=== PATIENT | female | born 2005 | race Caucasian/White ===

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

== ENCOUNTER 2024-06-24 09:42 | Emergency (ER) | payer BC, SELFPAY ==
[2024-06-24 09:47] VITALS: BP 128/81; PULSE 93; RESP 18; TEMP 36.5; O2SAT 99
[2024-06-24] MEDS: dexAMETHasone 10 MG/10 ML INTENSOL CONC (*BKC) PO (10:24)
--- NOTE | 2024-06-24 10:30 | ED_ITS ---
HPI - URI/Sore Throat General Chief Complaint: Upper Respiratory Infection Stated Complaint: Sore Throat Time Seen by Provider: 06/24/24 10:05 Source: patient and RN notes reviewed Mode of arrival: ambulatory Limitations: no limitations History of Present Illness HPI Narrative: [age] year old female presents Express Care complaining of sore throat for 2 days. Patient reports that her tonsils are swollen and that it is painful to swallow food. Patient also reports having body aches and chills. Patient denies any fevers, or any other upper respiratory symptoms. Patient says she had mono last year. Patient denies any difficulty swallowing, excessive drooling, or any difficulty breathing. Patient denies any significant past medical history. Related Data Home Medications ?Medication ?Instructions ?Recorded ?Confirmed ?Last Taken ?Type levonorgestrel 14 mcg/24 hr (up to 1 device intrauterine ONCE 08/19/21 06/24/24 Unknown History 3 yrs) 13.5 mg intrauterine device (Renetta) Allergies Allergy/AdvReac Type Severity Reaction Status Date / Time red dye Allergy Intermediate Hives Verified 06/24/24 09:48 Review of Systems Review of Systems: CONSTITUTIONAL: Denies fever, or sweats. Positive for body aches and chills. EYES: Denies visual changes, redness, or discharge. ENT: Denies rhinorrhea, congestion, or otalgia. Positive for sore throat. CARDIOVASCULAR: Denies chest pain, palpitations, or edema. RESPIRATORY: Denies cough or dyspnea. GASTROINTESTINAL: Denies abdominal pain, nausea, vomiting, or diarrhea. GENITOURINARY: Denies dysuria or hematuria. SKIN: Denies rash or itching. MUSCULOSKELETAL: Denies back pain, joint pain, or myalgia. NEUROLOGIC: Denies headache, numbness, or weakness. PSYCHIATRIC: Denies anxiety or depression. All other systems reviewed are negative, except as documented in HPI. [facility] Past Medical History Medical History Encounter for IUD insertion Back Pain Abnormal menstrual cycle Nocturnal enuresis Depression Anxiety disorder Surgical History Surgical History No significant past surgical history Family History Family History Grandparent Diabetes mellitus Hypertension Breast cancer Social History Social History Smoking status: Never smoker Tobacco type: e-cigarettes/vaping Alcohol intake: current Drinks per week: 1 Alcohol use details: occasionally Substance use: current Substance use type: marijuana Other substance usage details: smokes Last use: last night Do You Feel Safe in your Home?: Yes Lack of Transportation: No Lack of Food: Never True Current Housing: I Have Housing Concerned About Future Housing: No Difficulty Paying Gas/Electric Bills: No Difficulty Paying for Meds: No Currently Unemployed: No Education: High School Diploma/GED Difficulty w/ Childcare or Family Care: No Living arrangements: with family Comments At the time of my signature, I reviewed and agree with the nursing past medical, surgical, social, and family history. There is no relevant family history pertinent to the patient complaint. Exam Narrative: GENERAL: This is a well-nourished, well-developed adult, in no apparent distress. They are non ill-appearing, nontoxic appearing. HEAD: normocephalic, atraumatic. EYES: Sclera clear/white. Conjunctiva normal. Vision is grossly intact. Extraocular movements intact EARS: External ears normal, auditory canals clear and without drainage, TMs normal without perforation. Hearing grossly intact. NOSE: External nose normal with no obvious nasal discharge, nasal turbinates without redness, no rhinorrhea. THROAT: Mucous membranes moist, posterior pharynx erythematous without exudate. Tonsils are erythematous with exudate present. Uvula midline. No trismus. NECK: Neck supple, mild tenderness with cervical lymphadenopathy, masses or thyromegaly. CARDIOVASCULAR: Regular rate and rhythm without murmurs, gallops, or rubs. RESPIRATORY: Clear to auscultation. Breath sounds equal bilaterally. No wheezes, rales, or rhonchi. SKIN: warm, Dry, intact with no suspicious lesions or rash, good texture and turgor. NEURO: awake, alert, and oriented to person, place and time. There were no obvious focal neurologic abnormalities. EXTREMITIES: No joint tenderness, effusion, or edema noted. BACK: Nontender without deformity. Course Course Emergency Course: Portions of this record may have been created with voice recognition software Level of Care: Express Care Visit Vital Signs Vital signs: Vital Signs Temperature 97.7 F 06/24/24 09:47 Pulse Rate 93 06/24/24 09:47 Respiratory Rate 18 06/24/24 09:47 Blood Pressure 128/81 06/24/24 09:47 Pulse Oximetry 99 06/24/24 09:47 Oxygen Delivery Room Air 06/24/24 09:47 Temperature 97.7 F 06/24/24 09:47 Pulse Rate 93 06/24/24 09:47 Respiratory Rate 18 06/24/24 09:47 Blood Pressure 128/81 06/24/24 09:47 Pulse Oximetry 99 06/24/24 09:47 Oxygen Delivery Room Air 06/24/24 09:47 Reviewed MDM - URI/Sore Throat MDM Narrative Medical decision making narrative: Rapid strep negative. Throat culture pending. Likely symptoms are viral in etiology. Offered viral testing and mono swab and patient declined. Given her tonsils swelling and pain will give her 1 time dose of dexamethasone. Discussed physical exam findings. Advised supportive measures and signs/symptoms to go to the ER. Pt is appropriate for outpt treatment and f/u. Differential Diagnosis Differential diagnosis: Likely upper respiratory infection, viral infection, pharyngitis and other (Tonsillitis) Lab Data Attestation: I reviewed the patient's lab results. Critical Care Time Critical Care Time Critical Care Time: No Discharge Plan Discharge Clinical Impression: Acute tonsillitis Qualifiers: Pharyngitis/tonsillitis etiology: unspecified etiology Qualified Code(s): J03.90 - Acute tonsillitis, unspecified Patient Disposition: Home Condition: Stable Instructions: Tonsillitis (ED) Additional Instructions: You were given a dose of dexamethasone for your tonsil swelling today. Your rapid strep swab was negative today at [facility]. You will be notified in a few days if the culture comes back positive for strep, and appropriate antib iotics will be called in for you at that time. Your symptoms are likely due to a viral illness, which is not treated with antibiotics. Viral symptoms can be present for up to 10-14 days. Take Tylenol or ibuprofen for fever or pain. Rest and stay hydrated. Follow up with your PCP in 3-5 days if symptoms are not improving. Go to the ER immediately if you develop difficulty breathing or swallowing Patient Language: Panamanian Prescriptions: No Action Renetta 14 mcg/24 hrs (3 yrs) 13.5 mg intrauterine device 1 device intrauterine ONCE Rx Instructions: as a single dose desmopressin 0.2 mg tablet 0.1 mg PO .q hs PRN (Reason: Nocturnal enuresis) Qty: 90 3RF Follow-up/Referrals: PHYSICIAN,BRIDGE SAW OPERATOR [Primary Care Provider] - Stand Alone Forms: Work/School Release IP Time of Disposition: 10:21
[2024-06-24 11:57] LABS: EDSTREPNEGPOS1 Negative (Negative)
== END 2024-06-24 10:36 | disposition home or self-care (01) ==
DX: J03.90 Acute tonsillitis, unspecified (principal); F17.290 Nicotine dependence, other tobacco product, uncomplicated; F12.90 Cannabis use, unspecified, uncomplicated
CPT/HCPCS: 87081; 87880; 99213; G0463; J8540